=== PATIENT | female | born 1985 | race Caucasian/White ===

== ENCOUNTER 2020-07-14 21:39 | Emergency (ER) | payer MEDICAID ==
[~2020-07-14] VITALS: Ht 154.9 cm; Wt 59.0 kg
[2020-07-14 21:43] VITALS: BP 146/90
--- NOTE | 2020-07-14 21:43 | NUR ---
TO BED AMBULATORY
--- NOTE | 2020-07-14 21:50 | NUR ---
DOCTOR TAMAYO AT BEDSIDE
--- NOTE | 2020-07-14 21:50 | NUR ---
34 Y/O F BIB SELF COMPLAINING OF VAGINAL BLEEDING/SPOTTING, PT IS ROMANIAN SPEAKING, A&0X4, PT IS 9 WEEKS , [id number], PT RECENTLY HAD AN ULTRASOUND ON 07/10/20. MED HX: DENIES ALLERGIES: POLLEN
[2020-07-14 22:18] LABS: APPEARANCE,URINE CLEAR (CLEAR); BILIRUBIN,URINE NEGATIVE (NEGATIVE); BLOOD, URINE 1+ (NEGATIVE); COLOR,URINE YELLOW (YELLOW); LEUKOCYTE ESTERASE ,URINE 2+ (NEGATIVE); NITRITE, URINE NEGATIVE (NEGATIVE); UGLUCOSE NEGATIVE (NEGATIVE)
[2020-07-14 22:23] LABS: BASOPHILS % (AUTO) 0.6 % (0.0-2.0); EOSINOPHILS # (AUTO) 0.4 K/uL (0-0.4); EOSINOPHILS % (AUTO) 4.7 % (0.0-4.0); HEMATOCRIT 39.2 % (36-48); HEMOGLOBIN 12.9 g/dL (12.0-16.0); LYMPHOCYTES # (AUTO) 2.6 K/uL (2.5-16.5); LYMPHOCYTES % (AUTO) 31.2 % (20.5-51.1); MEAN CORPUSCULAR HEMOGLOBIN 30 pg (27-31); MEAN CORPUSCULAR HGB CONC 33 g/dL (33-37); MEAN CORPUSCULAR VOLUME 90.8 fL (80-94); MONOCYTES # (AUTO) 0.4 K/uL (0.8-1.0); MONOCYTES % (AUTO) 4.6 % (1.7-9.3); NEUTROPHILS # (AUTO) 4.9 K/uL (1.8-7.7); NEUTROPHILS % (AUTO) 58.9 % (42.2-75.2); PLATELET COUNT (AUTO) 214 K/uL (140-450); RED BLOOD CELL COUNT(AUTO) 4.31 MIL/uL (4.20-5.40); RED CELL DISTRIBUTION WIDTH 14.5 % (11.6-13.7); WHITE BLOOD COUNT (AUTO) 8.3 K/uL (4.8-10.8)
[2020-07-14 22:26] LABS: RBC,URINE 0-5 /HPF (0-5)
--- NOTE | 2020-07-14 22:42 | NUR ---
US AT BEDSIDE
[2020-07-14] MEDS ORDERED: cephALEXin 500 MG CAP PO ONE (23:05)
[2020-07-15] MEDS ORDERED: CEPH-588 PO (00:14)
[2020-07-15 00:40] VITALS: BP 137/77
== END 2020-07-15 00:40 | disposition home or self-care (01) ==
LOC: MED 21:39
DX: O20.0 Threatened abortion (principal); O23.41 Unspecified infection of urinary tract in pregnancy, first trimester; Z88.0 Allergy status to penicillin; Z3A.10 10 weeks gestation of pregnancy
CPT/HCPCS: 36415; 76817; 81001; 84702; 85025; 86900; 86901; 87086; 99284

== ENCOUNTER 2020-07-15 14:26 | Emergency (ER) | payer MEDICAID ==
[~2020-07-15] VITALS: Ht 154.9 cm; Wt 59.4 kg
[~2020-07-15 14:26] MED LIST: CEPH-588 PO
[2020-07-15 14:27] VITALS: BP 120/77
[2020-07-15 15:13] LABS: BASOPHILS # (AUTO) 0.1 K/uL (0.00-0.22); BASOPHILS % (AUTO) 0.6 % (0.0-2.0); EOSINOPHILS # (AUTO) 0.1 K/uL (0-0.4); HEMATOCRIT 39.9 % (36-48); HEMOGLOBIN 13.3 g/dL (12.0-16.0); LYMPHOCYTES # (AUTO) 1.9 K/uL (2.5-16.5); LYMPHOCYTES % (AUTO) 20.6 % (20.5-51.1); MEAN CORPUSCULAR HEMOGLOBIN 30 pg (27-31); MEAN CORPUSCULAR HGB CONC 33 g/dL (33-37); MEAN CORPUSCULAR VOLUME 90.3 fL (80-94); MONOCYTES # (AUTO) 0.5 K/uL (0.8-1.0); NEUTROPHILS # (AUTO) 6.5 K/uL (1.8-7.7); NEUTROPHILS % (AUTO) 71.8 % (42.2-75.2); PLATELET COUNT (AUTO) 224 K/uL (140-450); RED BLOOD CELL COUNT(AUTO) 4.42 MIL/uL (4.20-5.40); RED CELL DISTRIBUTION WIDTH 14.4 % (11.6-13.7); WHITE BLOOD COUNT (AUTO) 9.1 K/uL (4.8-10.8)
[2020-07-15 16:49] VITALS: BP 128/77
== END 2020-07-15 16:49 | disposition home or self-care (01) ==
LOC: MED 14:26
DX: O03.9 Complete or unspecified spontaneous abortion without complication (principal); Z88.0 Allergy status to penicillin; Z79.899 Other long term (current) drug therapy
CPT/HCPCS: 36415; 81002; 81025; 84702; 85025; 99283